=== PATIENT | female | born 1965 | race Caucasian/White ===

== ENCOUNTER 2017-06-17 09:33 | Emergency (ER) | payer OTHER ==
[~2017-06-17] VITALS: Ht 167.6 cm; Wt 117.9 kg
[~2017-06-17 09:33] MED LIST: AMOCLA875 PO; Alpha-Lipoic Ac50 MG PO; ERGO50000 PO; METF500C PO; Multiple Vitam1 EAC1; Prinivil5 MG PO; RXHYDACE PO
[2017-06-17 10:15] LABS: BASOPHILS ABSOLUTE AUTO 0.04 K/mm3 (0.00-0.23); BASOPHILS PERCENT AUTO 0 % (0-2); EOSINOPHILS ABSOLUTE AUTO 0.09 K/mm3 (0.00-0.68); EOSINOPHILS PERCENT AUTO 1 % (0-6); Hemoglobin 13.6 g/dL (11.5-16.0); IMMATURE GRAN ABSOLUTE AUTO 0.04 K/mm3 (0.00-0.10); IMMATURE GRAN PERCENT AUTO 0 % (0-1); LYMPHOCYTES ABSOLUTE AUTO 1.14 K/mm3 (0.84-5.20); LYMPHOCYTES PERCENT AUTO 12 % (21-46); MONOCYTES ABSOLUTE AUTO 0.37 K/mm3 (0.16-1.47); MONOCYTES PERCENT AUTO 4 % (4-13); Mean Corpuscular HGB 27.8 pg (26.0-34.0); Mean Corpuscular HGB Conc 33.2 g/dL (31.5-36.5); Mean Corpuscular Volume 84 fL (80-100); Mean Platelet Volume 9.7 fL (9.1-12.4); NEUTROPHILS ABSOLUTE AUTO 7.53 K/mm3 (1.96-9.15); NEUTROPHILS PERCENT AUTO 82 % (41-73); Platelet Count 171 K/mm3 (150-400); RDW Coefficient Variation 12.6 % (11.7-14.2); RDW Standard Deviation 38.2 fL (35.1-46.3); White Blood Cell Count 9.21 K/mm3 (4.00-11.30)
[2017-06-17 10:32] LABS: Alanine Aminotransfer (ALT/SGP 51 U/L (12-78); Albumin, Blood 3.9 g/dL (3.4-5.0); Alk Phos 70 U/L (50-136); Anion Gap 9 mmol/L (6-16); Aspartate Aminotrans (AST/SGOT 17 U/L (12-37); Bilirubin, Total 0.4 mg/dL (0.1-1.0); Blood Urea Nitrogen 15 mg/dL (8-24); Bun/Creatinine Ratio 22.1 (12.0-20.0); CO2, Blood 26 mmol/L (21-32); Calcium, Blood 8.8 mg/dL (8.5-10.1); Chloride, Blood 104 mmol/L (98-108); Creatinine, Blood 0.68 mg/dL (0.40-1.00); Globulin, Blood 3.8 g/dL (2.2-4.0); Glomerular Filtration Rate >60 (60-); Glucose, Blood 207 mg/dL (70-99); Potassium, Blood 4.2 mmol/L (3.5-5.5); Sodium, Blood 139 mmol/L (136-145); Total Protein, Blood 7.7 g/dL (6.4-8.2)
[2017-06-17 11:31] LABS: Troponin I <0.015 ng/mL (0.000-0.040)
[2017-07-06] MEDS ORDERED: LISI5 PO (16:47)
[2017-07-06] MEDS ORDERED: METF500 PO (16:47)
[2017-07-06] MEDS ORDERED: CHOL10002 PO (16:48)
[2017-07-06] MEDS ORDERED: Natrol Alpha 3300 MG PO (16:48)
[2017-07-06] MEDS ORDERED: PROGESTERONE100 MG PO (16:49)
[2017-07-06] MEDS ORDERED: COQ1050 MG PO (16:50)
[2017-07-06] MEDS ORDERED: Levothyroxine200 MCG PO (16:50)
[2017-07-06] MEDS ORDERED: FERROUS SULFATE PO (16:50)
== END 2017-06-17 12:20 | disposition home or self-care (01) ==
LOC: ER 09:33
PROVIDERS: Emergency Medicine
DX: K80.70 Calculus of gallbladder and bile duct without cholecystitis without obstruction (principal); Z79.84 Long term (current) use of oral hypoglycemic drugs; Z79.899 Other long term (current) drug therapy
CPT/HCPCS: 36415; 76705; 80053; 83690; 84484; 85025; 93005; 93010; 96374; 99284; J2405

== ENCOUNTER 2017-07-12 07:47 | Day surgery (SDC) | payer OTHER ==
[~2017-07-12] VITALS: Ht 167.6 cm; Wt 119.3 kg
[~2017-07-12 07:47] MED LIST changes: +CHOL10002 PO; +COQ1050 MG PO; +FERROUS SULFATE PO; +LISI5 PO; +Levothyroxine200 MCG PO; +METF500 PO; +Natrol Alpha 3300 MG PO; +PROGESTERONE100 MG PO
== END 2017-07-12 15:01 | disposition home or self-care (01) ==
LOC: ORSCMMR 07:47 → ORD 09:15 → ORSCMMR 09:15
PROVIDERS: Surgery
PROC: BF031ZZ Plain Radiography of Gallbladder and Bile Ducts using Low Osmolar Contrast (ICD-10-PCS; principal; 2017-07-12 09:15)
PROC: 0FT44ZZ Resection of Gallbladder, Percutaneous Endoscopic Approach (ICD-10-PCS; principal; 2017-07-12 09:15)
DX: K80.11 Calculus of gallbladder with chronic cholecystitis with obstruction (principal); I10 Essential (primary) hypertension; I25.10 Atherosclerotic heart disease of native coronary artery without angina pectoris; E11.9 Type 2 diabetes mellitus without complications; E03.9 Hypothyroidism, unspecified; E66.01 Morbid (severe) obesity due to excess calories; Z68.41 Body mass index [BMI] 40.0-44.9, adult
CPT/HCPCS: 74300; 82947; 88304; C1729; J0461; J0690; J1100; J1885; J2250; J2405; J2710; J3010; J7030; J7120

== ENCOUNTER 2018-08-05 08:29 | Emergency (ER) | payer OTHER ==
[~2018-08-05] VITALS: Ht 167.6 cm; Wt 117.9 kg
[2018-08-05 10:22] LABS: BASOPHILS ABSOLUTE AUTO 0.05 K/mm3 (0.00-0.23); BASOPHILS PERCENT AUTO 1 % (0-2); EOSINOPHILS ABSOLUTE AUTO 0.16 K/mm3 (0.00-0.68); EOSINOPHILS PERCENT AUTO 2 % (0-6); Hematocrit 46.4 % (33.0-51.0); Hemoglobin 15.2 g/dL (11.5-16.0); IMMATURE GRAN ABSOLUTE AUTO 0.02 K/mm3 (0.00-0.10); IMMATURE GRAN PERCENT AUTO 0 % (0-1); LYMPHOCYTES ABSOLUTE AUTO 1.34 K/mm3 (0.84-5.20); LYMPHOCYTES PERCENT AUTO 15 % (21-46); MONOCYTES ABSOLUTE AUTO 0.38 K/mm3 (0.16-1.47); MONOCYTES PERCENT AUTO 4 % (4-13); Mean Corpuscular HGB 28.1 pg (26.0-34.0); Mean Corpuscular HGB Conc 32.8 g/dL (31.5-36.5); Mean Corpuscular Volume 86 fL (80-100); Mean Platelet Volume 9.6 fL (9.1-12.4); NEUTROPHILS ABSOLUTE AUTO 6.74 K/mm3 (1.96-9.15); NEUTROPHILS PERCENT AUTO 78 % (41-73); Platelet Count 173 K/mm3 (150-400); RDW Coefficient Variation 12.7 % (11.7-14.2); RDW Standard Deviation 39.2 fL (35.1-46.3); Red Blood Cell Count 5.41 M/mm3 (3.80-5.20); White Blood Cell Count 8.69 K/mm3 (4.00-11.30)
[2018-08-05 10:46] LABS: Alanine Aminotransfer (ALT/SGP 53 U/L (12-78); Albumin, Blood 4.2 g/dL (3.4-5.0); Alk Phos 75 U/L (50-136); Anion Gap 8 mmol/L (6-16); Aspartate Aminotrans (AST/SGOT 20 U/L (12-37); Bilirubin, Total 0.5 mg/dL (0.1-1.0); Blood Urea Nitrogen 18 mg/dL (8-24); Bun/Creatinine Ratio 34.8 (12.0-20.0); CO2, Blood 26 mmol/L (21-32); Calcium, Blood 9.3 mg/dL (8.5-10.1); Chloride, Blood 105 mmol/L (98-108); Creatinine, Blood 0.52 mg/dL (0.40-1.00); Globulin, Blood 4.1 g/dL (2.2-4.0); Glomerular Filtration Rate >60 (60-); Glucose, Blood 168 mg/dL (70-99); Potassium, Blood 4.2 mmol/L (3.5-5.5); Sodium, Blood 139 mmol/L (136-145); Total Protein, Blood 8.3 g/dL (6.4-8.2)
== END 2018-08-05 13:32 | disposition home or self-care (01) ==
LOC: ER 08:29
PROVIDERS: Physician Assistant
DX: R10.11 Right upper quadrant pain (principal); Z79.899 Other long term (current) drug therapy; Z79.84 Long term (current) use of oral hypoglycemic drugs
CPT/HCPCS: 36415; 74177; 80053; 83690; 85025; 99284-25; Q9967

== ENCOUNTER → 2018-09-27 | Outpatient (CLI) | payer OTHER | END | disposition home or self-care (01) | LOC: LAB SHORT 07:00 → LAB 07:00 → LAB FUT 09-24 10:45 | DX: R10.84 Generalized abdominal pain (principal) | CPT/HCPCS: 87338 ==

== ENCOUNTER 2018-10-14 17:16 | Inpatient (IN) | payer OTHER ==
[~2018-10-14] VITALS: Ht 167.6 cm; Wt 121.5 kg
[~2018-10-14 17:16] MED LIST changes: -CHOL10002 PO; -LISI5 PO; -METF500 PO
[2018-10-14 17:50] LABS: BASOPHILS ABSOLUTE AUTO 0.06 K/mm3 (0.00-0.23); BASOPHILS PERCENT AUTO 1 % (0-2); EOSINOPHILS ABSOLUTE AUTO 0.26 K/mm3 (0.00-0.68); EOSINOPHILS PERCENT AUTO 3 % (0-6); Hematocrit 41.1 % (33.0-51.0); Hemoglobin 13.3 g/dL (11.5-16.0); IMMATURE GRAN ABSOLUTE AUTO 0.04 K/mm3 (0.00-0.10); IMMATURE GRAN PERCENT AUTO 0 % (0-1); LYMPHOCYTES ABSOLUTE AUTO 2.82 K/mm3 (0.84-5.20); LYMPHOCYTES PERCENT AUTO 30 % (21-46); MONOCYTES ABSOLUTE AUTO 0.61 K/mm3 (0.16-1.47); MONOCYTES PERCENT AUTO 7 % (4-13); Mean Corpuscular HGB 28.1 pg (26.0-34.0); Mean Corpuscular HGB Conc 32.4 g/dL (31.5-36.5); Mean Corpuscular Volume 87 fL (80-100); Mean Platelet Volume 10.1 fL (9.1-12.4); NEUTROPHILS ABSOLUTE AUTO 5.57 K/mm3 (1.96-9.15); NEUTROPHILS PERCENT AUTO 60 % (41-73); Platelet Count 186 K/mm3 (150-400); RDW Coefficient Variation 12.6 % (11.7-14.2); RDW Standard Deviation 40.4 fL (35.1-46.3); Red Blood Cell Count 4.73 M/mm3 (3.80-5.20); White Blood Cell Count 9.36 K/mm3 (4.00-11.30)
[2018-10-14 18:14] LABS: Alanine Aminotransfer (ALT/SGP 53 U/L (12-78); Albumin, Blood 3.8 g/dL (3.4-5.0); Alk Phos 69 U/L (50-136); Anion Gap 9 mmol/L (6-16); Aspartate Aminotrans (AST/SGOT 20 U/L (12-37); Bilirubin, Total 0.4 mg/dL (0.1-1.0); Blood Urea Nitrogen 21 mg/dL (8-24); Bun/Creatinine Ratio 28.7 (12.0-20.0); CO2, Blood 24 mmol/L (21-32); Calcium, Blood 8.9 mg/dL (8.5-10.1); Chloride, Blood 103 mmol/L (98-108); Creatinine, Blood 0.73 mg/dL (0.40-1.00); Globulin, Blood 3.7 g/dL (2.2-4.0); Glomerular Filtration Rate >60 (60-); Glucose, Blood 221 mg/dL (70-99); Potassium, Blood 3.7 mmol/L (3.5-5.5); Sodium, Blood 136 mmol/L (136-145); Total Protein, Blood 7.5 g/dL (6.4-8.2)
[2018-10-14] MEDS ORDERED: HYOS.125 PO (18:25)
[2018-10-14] MEDS ORDERED: METF500C (18:25)
[2018-10-14] MEDS ORDERED: LISI5 PO (19:56)
[2018-10-14] MEDS ORDERED: METF500C PO (19:56)
[2018-10-14] MEDS ORDERED: VITAMIN D350000 UNIT PO (19:57)
[2018-10-15 01:54] LABS: BASOPHILS ABSOLUTE AUTO 0.03 K/mm3 (0.00-0.23); BASOPHILS PERCENT AUTO 0 % (0-2); EOSINOPHILS ABSOLUTE AUTO 0.02 K/mm3 (0.00-0.68); EOSINOPHILS PERCENT AUTO 0 % (0-6); Hematocrit 39.2 % (33.0-51.0); Hemoglobin 12.7 g/dL (11.5-16.0); IMMATURE GRAN ABSOLUTE AUTO 0.03 K/mm3 (0.00-0.10); IMMATURE GRAN PERCENT AUTO 0 % (0-1); LYMPHOCYTES ABSOLUTE AUTO 1.56 K/mm3 (0.84-5.20); LYMPHOCYTES PERCENT AUTO 15 % (21-46); MONOCYTES PERCENT AUTO 5 % (4-13); Mean Corpuscular HGB Conc 32.4 g/dL (31.5-36.5); Mean Corpuscular Volume 86 fL (80-100); Mean Platelet Volume 9.9 fL (9.1-12.4); NEUTROPHILS ABSOLUTE AUTO 8.33 K/mm3 (1.96-9.15); NEUTROPHILS PERCENT AUTO 80 % (41-73); Platelet Count 167 K/mm3 (150-400); RDW Coefficient Variation 12.7 % (11.7-14.2); RDW Standard Deviation 40.1 fL (35.1-46.3); Red Blood Cell Count 4.54 M/mm3 (3.80-5.20); White Blood Cell Count 10.47 K/mm3 (4.00-11.30)
[2018-10-15 02:14] LABS: Alanine Aminotransfer (ALT/SGP 49 U/L (12-78); Albumin, Blood 3.6 g/dL (3.4-5.0); Albumin/Globulin Ratio 1.2 (0.8-1.8); Alk Phos 66 U/L (50-136); Anion Gap 6 mmol/L (6-16); Aspartate Aminotrans (AST/SGOT 17 U/L (12-37); Bilirubin, Total 0.4 mg/dL (0.1-1.0); Blood Urea Nitrogen 17 mg/dL (8-24); Bun/Creatinine Ratio 23.1 (12.0-20.0); CO2, Blood 31 mmol/L (21-32); Calcium, Blood 8.6 mg/dL (8.5-10.1); Chloride, Blood 105 mmol/L (98-108); Creatinine, Blood 0.74 mg/dL (0.40-1.00); Globulin, Blood 3.1 g/dL (2.2-4.0); Glomerular Filtration Rate >60 (60-); Glucose, Blood 149 mg/dL (70-99); Potassium, Blood 4.3 mmol/L (3.5-5.5); Sodium, Blood 142 mmol/L (136-145); Total Protein, Blood 6.7 g/dL (6.4-8.2)
[2018-10-15 02:16] LABS: Creatine Kinase MB 1.8 ng/mL (0.0-3.6); Creatine Kinase MB Index 2.3 (0.0-4.0); Troponin I <0.015 ng/mL (0.000-0.040)
--- NOTE | 2018-10-15 04:02 | NUR ---
NOC SHIFT SUMMARY PT ADMITTED THIS NIGHT FOR N/V, ABD PAIN, BRADYCARDIA, AND POSIBLE INCOARCERATED HERNIA. SHE HAS BEEN PLEASANT AND COOPERATIVE WITH CARE. SHE HAS NOT COMPLAINED OF ANY PAIN OR NAUSEA SINCE ADMISSION. VSS. AAOX4. RESP EVEN AND UNLABORED. NOT DIAFORETIC. CURRENTLY SLEEPING LIGHTLY AND APPEARS IN NO ACUTE DISTRESS. AT THIS TIME TROPS ARE NEG. WILL CONTINUE TO MONITOR.
[2018-10-15 10:36] LABS: CPK Creatine Kinase 94 U/L (26-193); Creatine Kinase MB 1.8 ng/mL (0.0-3.6); Creatine Kinase MB Index 1.9 (0.0-4.0); Troponin I <0.015 ng/mL (0.000-0.040)
--- NOTE | 2018-10-15 14:45 | NUR ---
PT. TO SURGERY VIA GIO.
--- NOTE | 2018-10-15 15:19 | NUR ---
PT ABLE TO AMBULATE TO [facility] AFTER VOIDING WITHOUT DIFFICULTY. OUT IN WAITING AREA. WILL KEEP GLASSES IN PACU. PT ORIENTED AND AWAKE , DENIES PAIN AT THIS TIME.
--- NOTE | 2018-10-15 15:28 | NUR ---
PT INFO CHECKED, ARMBAND, NPO.
--- NOTE | 2018-10-15 15:43 | NUR ---
"ELEMENTARY SECRETARY | HANDOFF FROM TATIANA GORDON Patient here in PACU staging for surgery. Report from Tatiana GORDON. No issues reported. Patient has no dentures, implants, or jewelery. Glasses on and patient will take them off prior to surgery per her request. Patient has been NPO. Denies pain and nausea. Patient having coherent conversation with this RN. [place] cap in place. LR running TKO to 18g in RAC. Waiting on Dr. Boudreaux to interview the patient."
--- NOTE | 2018-10-15 15:57 | NUR ---
"PARTNER | DR. BARHAONA AT BEDSIDE CBG obtained and results reported to Dr. Barahona. Circulating RN also at bedside at this time."
--- NOTE | 2018-10-15 18:15 | NUR ---
"ALTITUDE CHAMBER TECHNICIAN | CEFAZOLIN GIVEN IN OR BY ANESTHESIA. SEE ANESTHESIA RECORD."
--- NOTE | 2018-10-15 18:48 | NUR ---
ARRIVED FROM PACU VIA GURNEY, AWAKE, DENIES ANY PAIN OR ANY DISCOMFORT AT THIS TIME, ORIENTED TO ROOM LAYOUT AND CALL SYSTEM, ICE CHIPS OFFERED, REPORT TO NOC RN.
[2018-10-15 20:14] LABS: CPK Creatine Kinase 103 U/L (26-193); Creatine Kinase MB 1.1 ng/mL (0.0-3.6); Creatine Kinase MB Index 1.1 (0.0-4.0); Troponin I <0.015 ng/mL (0.000-0.040)
--- NOTE | 2018-10-16 06:32 | NUR ---
POD 1 S/P VENTRAL HERNIA REPAIR. PT VSS T/O NIGHT, HR SINUS 70'S PER TELE MONITOR. DRESSING CDI W/SM AMT SS DRNG NEAR DISTAL END OF INCISION, SX MAINTAINED. PAIN MGD W/1 NORCO W/REP RELIEF. PT AWAIS CLEAR LIQ PO, NO C/O N/V. IV SL PER ORDERS. PT UP IN ROOM W/SBA, IS USING CALL LIGHT FOR ASSISTANCE, WILL CONT TO MONITOR UNTIL REP GIVEN TO ONCOMING RN.
--- NOTE | 2018-10-16 11:42 | NUR ---
DR KERNS IN TO SEE PT.
[2018-10-16] MEDS ORDERED: Norco 5-325 Ta1 EACH PO (12:28)
--- NOTE | 2018-10-16 14:28 | NUR ---
DISCHARGED REVIEWED DC PAPERWORK W/PT. VERBALIZED UNDERSTANDING. DC'D IV TO RAC; CATHETER INTACT. TELE DC'D AND RETURNED TO PCU. PT LEFT UNIT IN WC W/POSSESSIONS AND DC PAPERWORK IN HAND ACCOMPANIED BY [email or web address].
== END 2018-10-16 13:30 | disposition home or self-care (01) | DRG 354 ==
LOC: ER 17:16 → MEDS 19:35 → SURS 21:00 → MEDS 21:09 → SURS 10-15 18:11
PROVIDERS: Internal Medicine; Surgery; ADMIT Internal Medicine
PROC: 0WUF0JZ Supplement Abdominal Wall with Synthetic Substitute, Open Approach (ICD-10-PCS; principal; 2018-10-15 14:30)
DX: K43.6 Other and unspecified ventral hernia with obstruction, without gangrene (principal); Z68.41 Body mass index [BMI] 40.0-44.9, adult; Z79.4 Long term (current) use of insulin; I10 Essential (primary) hypertension; E11.9 Type 2 diabetes mellitus without complications; E03.9 Hypothyroidism, unspecified; E66.01 Morbid (severe) obesity due to excess calories; R00.1 Bradycardia, unspecified
CPT/HCPCS: 36415; 71046; 74176; 80053; 82550; 82553; 82947; 83605; 83690; 84484; 85025; 93005; 93010; 93306; 96374; 96375; 99285-25; A9270-GY; C1781; C9113; J0690; J1100; J1170; J1650; J1885; J2250; J2405; J2550; J2704; J2710; J3010; J7030; J7120

== ENCOUNTER 2023-06-12 16:35 | Emergency (ER) | payer OTHER ==
[~2023-06-12] VITALS: Ht 167.6 cm; Wt 100.7 kg
[~2023-06-12 16:35] MED LIST changes: +HYOS.125 PO; +LISI5 PO; +METF500C; +Norco 5-325 Ta1 EACH PO; +VITAMIN D350000 UNIT PO
[2023-06-12] MEDS ORDERED: Percocet 5-3251 EACH PO ×2 (18:13→18:14)
[2023-06-12] MEDS ORDERED: ONDA4ODT MM (18:13)
[2023-06-12 19:00] VITALS: BP 176/79
== END 2023-06-12 19:00 | disposition home or self-care (01) ==
LOC: ER 16:35
DX: S82.841A Displaced bimalleolar fracture of right lower leg, initial encounter for closed fracture (principal); W01.10XA Fall on same level from slipping, tripping and stumbling with subsequent striking against unspecified object, initial encounter; Z79.899 Other long term (current) drug therapy; Z79.84 Long term (current) use of oral hypoglycemic drugs
CPT/HCPCS: 27810; 73610; 96374-59; 96375-59; 99283-25; A9270; J1170; J3010

== ENCOUNTER 2023-06-20 15:54 | Emergency (ER) | payer OTHER ==
[~2023-06-20] VITALS: Ht 167.6 cm; Wt 100.7 kg
[~2023-06-20 15:54] MED LIST changes: +ONDA4ODT MM; +Percocet 5-3251 EACH PO
[2023-06-20] MEDS ORDERED: OXYCODONE-ACET1 EAC3 UD (16:08)
[2023-06-20] MEDS ORDERED: SULFAMETHOXAZO1 EAC1 (16:09)
[2023-06-20] MEDS ORDERED: OZEMPIC1 MG/0.72 SQ (16:09)
[2023-06-20 16:13] LABS: BASOPHILS ABSOLUTE AUTO 0.03 K/mm3 (0.00-0.23); BASOPHILS PERCENT AUTO 1 % (0-2); EOSINOPHILS ABSOLUTE AUTO 0.27 K/mm3 (0.00-0.68); EOSINOPHILS PERCENT AUTO 4 % (0-6); Hematocrit 39.5 % (33.0-51.0); Hemoglobin 13.3 g/dL (11.5-16.0); IMMATURE GRAN ABSOLUTE AUTO 0.01 K/mm3 (0.00-0.10); IMMATURE GRAN PERCENT AUTO 0 % (0-1); LYMPHOCYTES ABSOLUTE AUTO 1.49 K/mm3 (0.84-5.20); LYMPHOCYTES PERCENT AUTO 24 % (21-46); MONOCYTES ABSOLUTE AUTO 0.41 K/mm3 (0.16-1.47); MONOCYTES PERCENT AUTO 7 % (4-13); Mean Corpuscular HGB 28.1 pg (26.0-34.0); Mean Corpuscular HGB Conc 33.7 g/dL (31.5-36.5); Mean Corpuscular Volume 84 fL (80-100); Mean Platelet Volume 8.9 fL (9.1-12.4); NEUTROPHILS ABSOLUTE AUTO 3.96 K/mm3 (1.96-9.15); NEUTROPHILS PERCENT AUTO 64 % (41-73); Platelet Count 237 K/mm3 (150-400); RDW Coefficient Variation 12.9 % (11.7-14.2); RDW Standard Deviation 39.5 fL (35.1-46.3); Red Blood Cell Count 4.73 M/mm3 (3.80-5.20); White Blood Cell Count 6.17 K/mm3 (4.00-11.30)
[2023-06-20 16:30] LABS: Albumin, Blood 3.8 g/dL (3.4-5.0); Bilirubin, Total 0.5 mg/dL (0.1-1.0); Bun/Creatinine Ratio 33.4 (12.0-20.0); Calcium, Blood 9.1 mg/dL (8.5-10.1); Creatinine, Blood 0.69 mg/dL (0.40-1.00); Potassium, Blood 3.9 mmol/L (3.5-5.5); Total Protein, Blood 7.8 g/dL (6.4-8.2)
[2023-06-20 17:50] VITALS: BP 153/72
== END 2023-06-20 17:53 | disposition home or self-care (01) ==
LOC: ER 15:54
PROVIDERS: Emergency Medicine
DX: F41.9 Anxiety disorder, unspecified (principal); S82.891D Other fracture of right lower leg, subsequent encounter for closed fracture with routine healing; E11.9 Type 2 diabetes mellitus without complications; Z79.84 Long term (current) use of oral hypoglycemic drugs; X58.XXXD Exposure to other specified factors, subsequent encounter
CPT/HCPCS: 71045; 80053; 84484; 85025; 93005; 93010; 99284-25; A9270

== ENCOUNTER 2023-06-23 11:55 | Day surgery (SDC) | payer OTHER ==
[~2023-06-23] VITALS: Ht 167.6 cm; Wt 98.3 kg
[~2023-06-23 11:55] MED LIST changes: +OXYCODONE-ACET1 EAC3 UD; +OZEMPIC1 MG/0.72 SQ; +SULFAMETHOXAZO1 EAC1
--- NOTE | 2023-06-23 14:53 | NUR ---
06/23/23 1453 Anitha Delgado POPLITEAL BLOCK PERFORMED BY AT 1437 IN PREOP.
--- NOTE | 2023-06-23 16:00 | NUR ---
06/23/23 1600 BLANE SUBRAMANIAN PT DENIES FOOT PAIN BUT IS COMPLAINING OF BACK PAIN.
[2023-06-23 16:13] VITALS: BP 155/76
== END 2023-06-23 17:10 | disposition home or self-care (01) ==
LOC: ORSCSDS 11:55
PROVIDERS: Podiatrist Foot & Ankle Surgery
PROC: 0QSG04Z Reposition Right Tibia with Internal Fixation Device, Open Approach (ICD-10-PCS; principal; 2023-06-23 13:15)
PROC: 0QSJ04Z Reposition Right Fibula with Internal Fixation Device, Open Approach (ICD-10-PCS; principal; 2023-06-23 13:15)
DX: S82.841A Displaced bimalleolar fracture of right lower leg, initial encounter for closed fracture (principal); W01.0XXA Fall on same level from slipping, tripping and stumbling without subsequent striking against object, initial encounter; Y93.K1 Activity, walking an animal; Z68.35 Body mass index [BMI] 35.0-35.9, adult; I10 Essential (primary) hypertension; Z79.85 Long-term (current) use of injectable non-insulin antidiabetic drugs
CPT/HCPCS: 82947; C1713; C1769; J0171; J0690; J1100; J2250; J2405; J2704; J2765; J2795; J3010; J7120

== ENCOUNTER 2024-06-19 08:46 | Day surgery (SDC) | payer OTHER ==
[~2024-06-19] VITALS: Ht 167.6 cm; Wt 109.2 kg
[~2024-06-19 08:46] MED LIST changes: +Bupivacaine 0.5% W/EPI 1:200000 SDV 30 ML Vial ONE; +Lactated Ringer's 1,000 ML IV ONE
[2024-06-19] MEDS ORDERED: CeFAZolin Sodium 2,000 MG VIAL ONE (09:07)
[2024-06-19] MEDS ORDERED: Lactated Ringer's 1,000 ML IV ONE (09:13)
[2024-06-19] MEDS ORDERED: METF500 PO (09:15)
[2024-06-19] MEDS ORDERED: Prinivil10 MG PO (09:15)
[2024-06-19] MEDS ORDERED: Ondansetron HCl 2 MG / ML 2ML Vial ONE (10:59)
[2024-06-19] MEDS ORDERED: Dexamethasone Sod Phos 10 MG/ML 1ML VIAL ONE (10:59)
[2024-06-19] MEDS ORDERED: FentaNYL Citrate 50 MCG/ML 2 ML Injection ONE (11:00)
[2024-06-19] MEDS ORDERED: Midazolam HCl 1MG / ML 2ML Vial ONE (11:00)
[2024-06-19] MEDS ORDERED: propofoL 20 ML IV ONE (11:00)
--- NOTE | 2024-06-19 12:00 | NUR ---
06/19/24 Tiarra Salazar PT ARRIVES TO PACU ON RA, VSS. PT DENIES PAIN/NAUSEA. NUMBNESS TO R FOOT D/T LOCAL. WALKING BOOT IN PLACE. NO VISIBLE SIGNS OF DISTRESS NOTED.
--- NOTE | 2024-06-19 12:13 | NUR ---
06/19/24 1213 Tiarra Anderson PT TRANSFERRED TO SDU. PT AMBULATED TO RECLINER W/ MIN ASSIST, TOLERATED WELL. PT TOLERATING SIPS OF CLEAR LIQUIDS. PT DENIES PAIN. VSS, ON RA. RLE ELVATED & ICE PACK APPLIED. NO VISIBLE SIGNS OF DISTRESS NOTED.
[2024-06-19 12:48] VITALS: BP 150/74
== END 2024-06-19 12:40 | disposition home or self-care (01) ==
LOC: ORSCSDS 08:46
PROVIDERS: Podiatrist Foot & Ankle Surgery
PROC: 0YP90YZ Removal of Other Device from Right Lower Extremity, Open Approach (ICD-10-PCS; principal; 2024-06-19 10:15)
DX: T84.84XA Pain due to internal orthopedic prosthetic devices, implants and grafts, initial encounter (principal); E11.9 Type 2 diabetes mellitus without complications; I10 Essential (primary) hypertension; E66.01 Morbid (severe) obesity due to excess calories; Z68.38 Body mass index [BMI] 38.0-38.9, adult; Z79.84 Long term (current) use of oral hypoglycemic drugs; Z79.899 Other long term (current) drug therapy
CPT/HCPCS: 82947; J0690; J1100; J2250; J2405; J2704; J3010; J7120